=== PATIENT | male | born 1940 | race Caucasian/White ===

== ENCOUNTER → 2017-02-10 | Outpatient (CLI) | payer MEDICARE, OTHER ==
[~2017-02-10] MED LIST: ACTOS30 MG PO; ASPIRIN LO-DOSE81 MG PO; ATROVENT I0.5 MG/2.5 INH; DEXTROSE 50%-WA50 M1 IVP; DULCOLAX10 MG R; FLOMAX0.4 MG PO; GLUCAGON/GLUCAGE1 MG IM; GLUCOPHAGE500 MG PO; GLUCOSE4 GM PO; GLUCOTROL10 MG PO; K-TAB ER10 MEQ PO; LASIX20 MG PO; LEVEMIR100 UNIT/1 SUB-Q; LOVENOX 3030 MG/0.3 SUB-Q; MILK OF MA400 MG/5 M PO; MIRALAX17 GM PO; NOVOLOG100 UNIT/M SUB-Q; PERCOCET 5-3251 EACH PO; PHENERGAN25 M1 PO; THERAGRAN-M1 TAB PO; TYLENOL325 MG PO; TYLENOL650 MG R; ZOCOR20 MG PO
--- NOTE | ~2017-02-10 | NDGEN ---
PATIENT'S NAME: XAVI PINEDA [facility] AGE: 77 Y [address] ROOM: [place] [address] LOCATION: [facility] ADMIT DATE: 02/10/2017 Neurodiagnostics DISCHARGE DATE: FAMILY PHYSICIAN: Manuel Isabel MD ATTENDING PHYSICIAN: KIMBERLEE STINSON PROCEDURE: NERVE CONDUCTION STUDY OF THE BILATERAL LOWER EXTREMITIES AND A RIGHT LOWER EXTREMITY EMG. THE PATIENT WAS SEEN ON THIS TEST ON 02/10/2017. TEST WAS DONE ON 02/10/2017. DATE OF PROCEDURE: 02/10/2017 INDICATION: This is a 77-year-old male patient who has a history of longstanding diabetes, who has been having progressive difficulty with wide- based gait and essentially some issues with balance. His balance issues get worse when there are no visual cues such as in dark situations and when his eyes are closed, he is extremely off balance. The thought here is that he likely has a neuropathy associated with diabetes and/or a large fiber neuropathy associated with his imbalance. Nerve conduction studies were performed in the bilateral lower extremities including stimulation of the bilateral tibial and peroneal motor nerves as well as the sural sensory nerves. There was completely absent sensory nerve action potentials seen in the sural nerves bilaterally. Furthermore, there was complete absence of compound motor action potentials seen in the right lower extremity peroneal and tibial nerves. In the left lower extremity, a small CMAPs were elicited that appeared to have normal motor onset latency, but extremely low amplitudes, but preserved nerve conduction velocities. Again, there was absence of sural nerve action potential seen on the left as well. IMPRESSION: There was either absent compound motor action potentials as well as absent sensory nerve action potentials or there were very subtle compound motor action potentials with low amplitudes seen particularly in the left lower extremity. 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 Furthermore, there was full recruitment of motor unit PATIENT'S NAME: XAVI PINEDA [facility] AGE: 77 Y [address] ROOM: [place] [address] LOCATION: [facility] ADMIT DATE: 02/10/2017 Neurodiagnostics DISCHARGE DATE: FAMILY PHYSICIAN: Manuel Isabel MD ATTENDING PHYSICIAN: KIMBERLEE STINSON action potentials seen in the tibialis anterior and the gastrocnemius muscle. 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 The aspect of the patient having proprioceptive balance issues may also suggest a demyelinative hereditary neuropathy. The fact that he has high arched feet do point to the hereditary variant neuropathy, also playing a role here in his balance; however, from the standpoint of finding evidence for a lumbar radiculopathy, this is lacking. He has normal recruitment of motor unit action potentials and normal needle study otherwise. MD NAMRATA MARTINEZ/demetriol /[id number] dtt: 02/15/17 2110 MIL[address] JASON R. dtd: 02/10/17 1148
== END | disposition disaster alternative care site (69) ==
LOC: GNEU 08:09 → GRAD 10:00
DX: R26.0 Ataxic gait (principal); M48.02 Spinal stenosis, cervical region; M47.892 Other spondylosis, cervical region; G95.9 Disease of spinal cord, unspecified; G31.9 Degenerative disease of nervous system, unspecified; I67.89 Other cerebrovascular disease